=== PATIENT | male | born 1975 | race Two or more races ===

== ENCOUNTER 2019-12-10 00:16 | Emergency (ER) | payer MEDICAID ==
[~2019-12-10] VITALS: Ht 172.7 cm; Wt 81.6 kg
[2019-12-10 00:18] VITALS: BP 146/74
[2019-12-10] MEDS ORDERED: ACETAMINOPHEN 500 MG TABLET PO ONE (01:00)
[2019-12-10] MEDS ORDERED: AMOXICILLIN 500 MG CAPSULE PO SCH (01:00)
[2019-12-10] MEDS ORDERED: AMOXICILLIN 250 MG/5 ML, ORAL SUSP PO SCH (01:00)
== END 2019-12-10 00:55 | disposition home or self-care (01) ==
LOC: ED 00:30
DX: K04.7 Periapical abscess without sinus (principal)
CPT/HCPCS: 99283